=== PATIENT | female | born 1965 | race Caucasian/White ===

== ENCOUNTER → 2024-03-14 14:58 | Observation (INO) ==
[2024-03-10] MEDS: IPRATROPIUM/ALBUTEROL SULFATE 3 ML AMPUL.NEB INH SCH (15:14)
[2024-03-10 15:15] LABS: PCO2 ABG 41 mmHg (35-45); pH ABG 7.44 (7.35-7.45)
[2024-03-10 15:16] LABS: Base Excess ABG 3.3 mmo1/L (-2-2); Oxygen Saturation ABG 84 % (92-100); PO2 ABG 47 mmHg (60-100)
--- NOTE | 2024-03-10 16:10 | History & Physical Report ---
H&P: HPI History of Present Illness Chief complaint: copd exacerbation Narrative: Patient is a 58 year old female who presented to her PCP, ALEX Ayers for complaint of COPD Exacerbation with failed outpatient treatment. Per PCP patient has experienced worsening cough and shortness of breath, coughing up thick sputum, reports fatigue and dyspnea worse with exertion. Patient states last night when she checked her oxygen it was dropping into the 80's, while symptomatic. While in the PCP office, walk test was attempted to be performed and had to terminate due to worsening symptoms; O2 Sats dropping to 82%, HR increased to 120s, cough worsened, and dizziness started. Patient disclosed she originally began the first part of the month and she has failed outpatient treatment with Azithromycin and cough medication, without improvement. Admitted to med/surg for further observation and treatment. Day one of hospital stay, patient was put on 2L O2 via nasal cannula, current O2 Sats at 93%. Blood Gas performed by Respiratory Therapy, ABG HCO3 27.8, ABG 02 Saturation 84, ABG Base Excess 3.3, Respiratory Index 1.1. Patient will continue to be monitored throughout the night. Review of Systems Status of ROS 10 or more systems reviewed and unremark able except as noted in history and below Constitutional Reports: fatigue; Denies: fever, chills or change in weight Eyes Denies: change in vision, blurry vision, blind spots or light sensitivity Ears, nose, mouth, and throat Denies: throat pain, neck pain, throat swelling, difficulty swallowing or hoarseness Cardiovascular Denies: chest pain, palpitations, edema, swelling of feet/ankles or lightheadedness Respiratory Reports: shortness of breath, cough and chest congestion Gastrointestinal Denies: abdominal pain, nausea, vomiting or coffee grounds in vomit Genitourinary Denies: painful urination, urinary frequency, urinary urgency or urinary incontinence Musculoskeletal Denies: back pain, neck pain, extremity pain, extremity swelling or joint pain Integumentary/Breast Denies: rash, itching, redness, skin pain or skin tenderness Neurological Reports: dizziness; Denies: headache, numbness in extremities, weakness in extremities or lack of coordination Psychiatric Denies: anxiety, mood swings, panic attacks, change in sleep pattern or hopelessness Endocrine Reports: fatigue; Denies: excessive urination, excessive thirst, cold intolerance or excessive sweating Hematologic/Lymphatic Denies: easy bruising, easy bleeding or enlarged lymph nodes Allergic/Immunologic Denies: hives, throat swelling, tongue swelling, facial swelling or wheezing [facility] Medical History (Updated 03/11/24 @ 07:44 by Anisha Rudolph DO) COPD exacerbation Social History Problems where you live: no known problems Highest level of school completed/degree received: high school Meds Home Medications and Allergies Allergies Allergy/AdvReac Type Severity Reaction Status Date / Time aspirin Allergy Mild Abdominal Verified 03/10/24 17:00 Pain Exam Exam: Patient placed on 2L O2 via nasal cannula. Constitutional: abnormal general appearance (disheveled), (chronically ill) and (lethargic), distress noted (mild) and (respiratory), abnormal body habitus (obese), no limitations and alert Vital Signs - 24 hr 03/10/24 15:12 03/10/24 15:12 Pulse Oximetry 90 L 93 L Oxygen Delivery Me thod Nasal Cannula Oxygen Flow Rate 2 Fraction of Inspir ed Oxygen 28 HENMT: normocephalic, head/scalp atraumatic, hearing grossly normal bilaterally, external ears normal and external nose normal Eyes: PERRL, EOMs intact bilaterally, conjunctivae normal, no scleral icterus, papilledema noted, alignment normal, periorbital findings normal and visual acuity normal Neck/C-Spine: trachea midline, cervical spine nontender, abnormal cervical ROM noted, supple, no meningeal signs, thyroid normal and no carotid bruits Lymph: no lymphadenopathy noted and no lymphedema noted Chest: inspection of chest normal and palpation of chest normal Respiratory: breath sounds equal bilaterally, abnormal respiratory effort (shallow breathing) and (labored) and auscultation abnormal (diminished breath sound) Cardiovascular: heart rate abnormal (tachycardic), regular rhythm noted, no gallop, no rub, no murmur, no JVD, no clicks and peripheral pulses 2+ throughout Gastrointestinal: abdomen normal to inspection, abdomen soft to palpation, nontender to palpation, nondistended, normoactive bowel sounds, no ascites and no hernia Genitourinary: bladder normal to palpation and external appearance normal Back/Pelvis: no thoracic spine tenderness, no lumbar spine tenderness, thoracic spine ROM normal and lumbar spine ROM normal Extremities: normal to inspection 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: 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, no movement abnormality noted, no focal motor deficit noted, sensory deficit noted, deep tendon reflexes 2+ bilaterally, gait normal, speech normal, coordination normal, no pronator drift noted, no fasciculations noted and GCS normal Psychiatry: Mental Status Exam documented within this Exam's Psych section mental status grossly normal, oriented x3, thought process normal, cooperative, affect normal, psychomotor activity normal and memory normal Skin: skin color normal, no rash, no lesions, no ecchymosis noted, no wounds, no lacerations, skin turgor normal, no jaundice, no petechiae, no mottling and nails abnormality noted Assessment and Plan Assessment and Plan (1) COPD exacerbation: Code(s): J44.1 - Chronic obstructive pulmonary disease with (acute) exacerbation (2) SOB (shortness of breath): Code(s): R06.02 - Shortness of breath (3) Hypoxia: Code(s): R09.02 - Hypoxemia (4) Dyspnea: Qualifiers: Dyspnea type: dyspnea on exertion Qualified Code(s): R06.09 - Other forms of dyspnea Code(s): R06.00 - Dyspnea, unspecified (5) Near syncope: Code(s): R55 - Syncope and collapse Plan Sodium Chloride 1,000 mls @ 125 mls/hr IV CONT Sodium Chloride 1,000 mls Bolus Azithromycin 500 mg in Sodium Chloride 250 mls @ 250 mls/hr IV Q24H Levofloxacin/Dextrose 500 mg in 100 mls @ 50 mls/hr IV Q24H Albuterol Sulfate 3 ml INH RQ4 Budesonide 0.5 mg INH RBID Pantoprazole Sodium 40 mg PO DAILY Enoxaparin Sodium 40 mg SUBQ Q24H Methylprednisolone Sodium Succinate 125 mg IVP Q12H Acetaminophen 1,000 mg PO Q6H PRN Ketorolac Tromethamine 15 mg IVP Q6H PRN Ondansetron Hcl 4 mg INJ Q6H PRN Chlorphenir/Hydrocodone Polistirex 5 ml PO Q12H PRN Benzonatate 200 mg PO Q8H PRN Results ABG ABG results: 03/10/24 14:47 ABG pH 7.44 ABG pCO2 41 ABG pO2 98 ABG HCO3 27.8 H ABG Total CO2 29.1 ABG O2 Saturation 84 L* ABG Base Excess 3.3 H Imaging Imaging ordered: Chest x-ray Radiologist's impression: XR CHEST 2V Date of Service: 03/10/24 HISTORY: COPD suspect bronchpneumoniaCOPD suspect bronchpneumonia; CV COMPARISON: February 12, 2024 FINDINGS: The trachea is midline. The cardiac silhouette is normal in size. Mild emphysema is present. The lungs are clear without focal infiltrate or effusion. The bony thorax is unremarkable. IMPRESSION: No acute cardiopulmonary disease.
[2024-03-10] MEDS: ENOXAPARIN SODIUM 40 MG/0.4 ML SYRINGE SUBQ SCH (16:16)
[2024-03-10] MEDS: AZITHROMYCIN 500 MG 500 MG in 0.9 % SODIUM CHLORIDE 250 ML IV SCH (16:16)
[2024-03-10] MEDS: METHYLPREDNISOLONE SOD SUCC/PF 125 MG/2 ML VIAL IVP SCH (16:16)
[2024-03-10] MEDS: 0.9 % SODIUM CHLORIDE 1000 ML 1,000 ML IV SCH ×2 (16:16→16:17)
[2024-03-10] MEDS: LEVOFLOXACIN/D5W 500 MG/100 ML 500 MG/100 ML PIGGYBACK IV SCH (16:16)
[2024-03-10 16:23] LABS: Basophils #(Absolute) Auto 0.1 (0.0-0.1); Basophils%(Percent) Auto 0.8 (0.1-0.85); Eosinophils#(Absolute)Auto 0.1 (0.0-0.2); Granulocytes % - Auto 70.5 % (47.8-71.3); Granulocytes#(Absolute)- Auto 4.9 (2.3-6.0); Hematocrit 43.2 % (35.9-46.7); Mean Corpuscular Volume 92.4 fl (81.0-93.7); Monocytes #(Absolute)- Auto 0.6 (1.1-3.1); Monocytes %(Percent)- Auto 8.5 % (3.6-9.8); Platelet Count 236 K/uL (152-353)
[2024-03-10 16:47] LABS: Potassium 3.2 mmol/L (3.6-5.2)
[2024-03-10] MEDS: ACETAMINOPHEN 500 MG TABLET PO PRN (17:21)
[2024-03-10] MEDS: BUDESONIDE 0.5 MG/2 ML AMPUL.NEB INH SCH (20:16)
[2024-03-11] MEDS: HYDROCODONE/CHLORPHEN P-STIREX 5 ML SUS.ER.12H PO PRN (00:24)
[2024-03-11 04:51] LABS: Basophils%(Percent) Auto 0.4 (0.1-0.85); Granulocytes % - Auto 76.5 % (47.8-71.3); Granulocytes#(Absolute)- Auto 3.2 (2.3-6.0); Hematocrit 38.8 % (35.9-46.7); Mean Corpuscular Volume 92.7 fl (81.0-93.7); Monocytes #(Absolute)- Auto 0.2 (1.1-3.1); Platelet Count 203 K/uL (152-353); White Blood Count 4.2 K/uL (4.3-9.3)
[2024-03-11 05:11] LABS: Potassium 3.6 mmol/L (3.6-5.2)
[2024-03-11 09:04] LABS: Amphetamine Screen Urine NEG. (NEGATIVE); Cannabinoid Screen Urine NEG. (NEGATIVE); Cocaine Screen Urine NEG. (NEGATIVE); Methadone Screen Urine NEG. (NEGATIVE); Opiate Screen Urine POS. (NEGATIVE)
[2024-03-11 09:12] LABS: Urine Appearance CLEAR (CLEAR); Urine Color YELLOW (STRAW/YELL.)
[2024-03-11 09:13] LABS: Specific Gravity Urine 1.025 (1.001-1.035); Urine Blood NEGATIVE (NEG - TRACE); Urine Urobilinogen Normal (NORMAL)
[2024-03-11] MEDS: PANTOPRAZOLE SODIUM 40 MG TABLET.DR PO SCH (09:17)
[2024-03-11] MEDS: MAGNESIUM OXIDE 400 MG TABLET PO ONE (09:36)
[2024-03-11] MEDS: lisinopriL 5 MG TABLET PO SCH (13:37)
[2024-03-11] MEDS: CITALOPRAM HYDROBROMIDE 20 MG TABLET PO SCH (13:37)
[2024-03-11] MEDS: FLUTICASONE 50 MCG NASAL 1 SPRAY.SUSP NAS SCH (13:37)
[2024-03-11] MEDS: LEVOTHYROXINE SODIUM 100 MCG TABLET PO SCH (16:05)
--- NOTE | 2024-03-11 16:57 | Progress Note ---
Progress Note: Subjective Subjective Interval history: Day two of hospital stay, nurse had to perform an in and out catheter to catch urine, as patient kept removing urine hat in toilet. Patient is on 2L O2 and saturating 96%, without O2 on patient saturation drops to 82%. Walk Test was performed by Respiratory Therapy. Patient has inspiratory and expiratory wheezing. Provider recommends adding humidity to O2, as well as, Flonase to medication, and an Acapella device. Home meds will be restarted. Exam Exam: Patient placed on 2L O2 via nasal cannula. Constitutional: abnormal general appearance (chronically ill), distress noted (mild) and (respiratory), abnormal body habitus (obese), no limitations and alert Vital Signs - 24 hr 03/10/24 20:17 03/10/24 20:17 03/10/24 22:07 Temperature 98.2 F Pulse Rate [Left B rachial] 94 H Respiratory Rate 20 Blood Pressure [Le ft Radial Artery] 139/77 Pulse Oximetry 95 95 94 L Oxygen Delivery Me thod Nasal Cannula Oxygen Flow Rate 2 Fraction of Inspir ed Oxygen 03/10/24 22:08 03/10/24 23:31 03/11/24 00:00 Temperature 98.2 F 97.6 F Pulse Rate [Left B rachial] 94 H 82 Respiratory Rate 20 19 Blood Pressure [Le ft Radial Artery] 139/77 152/59 Pulse Oximetry 94 L 97 97 Oxygen Delivery Me thod Nasal Cannula Oxygen Flow Rate 2 Fraction of Inspir ed Oxygen 03/11/24 00:00 03/11/24 03:35 03/11/24 04:00 Temperature 97.6 F 98.1 F Pulse Rate [Left B rachial] 82 85 Respiratory Rate 19 20 Blood Pressure [Le ft Radial Artery] 152/59 129/92 Pulse Oximetry 97 95 97 Oxygen Delivery Me thod Nasal Cannula Oxygen Flow Rate 2 Fraction of Inspir ed Oxygen 03/11/24 04:00 03/11/24 07:51 03/11/24 08:00 Temperature 98.1 F 97.8 F Pulse Rate [Left B rachial] 85 80 Respiratory Rate 20 19 Blood Pressure [Le ft Radial Artery] 129/92 147/72 Pulse Oximetry 97 96 96 Oxygen Delivery Me thod Nasal Cannula Nasal Cannula Oxygen Flow Rate 2 2 Fraction of Inspir ed Oxygen 03/11/24 10:22 03/11/24 11:20 03/11/24 11:58 Temperature 98 F Pulse Rate [Left B rachial] 97 H Respiratory Rate 19 Blood Pressure [Le ft Radial Artery] 149/73 Pulse Oximetry 93 L 98 98 Oxygen Delivery Me thod Nasal Cannula Nasal Cannula Oxygen Flow Rate 2 2 Fraction of Inspir ed Oxygen 28 03/11/24 15:49 03/11/24 16:00 Temperature 97.7 F Pulse Rate [Left B rachial] 99 H Respiratory Rate 19 Blood Pressure [Le ft Radial Artery] 132/63 Pulse Oximetry 92 L 99 Oxygen Delivery Me thod Nasal Cannula Oxygen Flow Rate 2 Fraction of Inspir ed Oxygen HENMT: normocephalic, head/scalp atraumatic, hearing grossly normal bilaterally, external ears normal and external nose normal Eyes: PERRL, EOMs intact bilaterally, conjunctivae normal, no scleral icterus, papilledema noted, alignment normal, periorbital findings normal and visual acuity normal Neck/C-Spine: trachea midline, cervical spine nontender, abnormal cervical ROM noted, supple, no meningeal signs, thyroid normal and no carotid bruits Lymph: no lymphadenopathy noted and no lymphedema noted Chest: inspection of chest normal and palpation of chest normal Respiratory: breath sounds equal bilaterally, abnormal respiratory effort (shallow breathing) and (labored) and auscultation abnormal (diminished breath sound) Cardiovascular: heart rate abnormal (tachycardic), regular rhythm noted, no gallop, no rub, no murmur, no JVD, no clicks and peripheral pulses 2+ throughout Gastrointestinal: abdomen normal to inspection, abdomen soft to palpation, nontender to palpation, nondistended, normoactive bowel sounds, no ascites and no hernia Genitourinary: bladder normal to palpation and external appearance normal Back/Pelvis: spine normal to inspection, no thoracic spine tenderness, no lumbar spine tenderness, thoracic spine ROM normal and lumbar spine ROM normal Extremities: normal to inspection 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: 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, no movement abnormality noted, no focal motor deficit noted, sensory deficit noted, deep tendon reflexes 2+ bilaterally, gait normal, speech normal, coordination normal, no pronator drift noted, no fasciculations noted and GCS normal Psychiatry: Mental Status Exam documented within this Exam's Psych section mental status grossly normal, oriented x3, thought process normal, cooperative, affect normal, psychomotor activity normal and memory normal Skin: skin color normal, no rash, no lesions, no ecchymosis noted, no wounds, no lacerations, skin turgor normal, no jaundice, no petechiae, no mottling and nails abnormality noted Progress Note: Objective Labs Labs: CBC WBC 4.2 K/uL (4.3-9.3) L 03/11/24 04:38 RBC 4.2 M/uL (4.00-5.50) 03/11/24 04:38 Hgb 13.1 gm/dL (12.5-15.8) 03/11/24 04:38 Hct 38.8 % (35.9-46.7) 03/11/24 04:38 MCV 92.7 fl (81.0-93.7) 03/11/24 04:38 MCH 31.3 pg (27.6-32.2) 03/11/24 04:38 MCHC 33.8 g/dl (33.1-35.3) 03/11/24 04:38 RDW 14.1 % (11.4-14.2) 03/11/24 04:38 Plt Count 203 K/uL (152-353) 03/11/24 04:38 MPV 8.4 fl (6.9-10.8) 03/11/24 04:38 Gran % 76.5 % (47.8-71.3) H 03/11/24 04:38 Lymph % (Auto) 17.1 % (20.0-43.0) L 03/11/24 04:38 [place] % (Auto) 6.0 % (3.6-9.8) 03/11/24 04:38 Eos % (Auto) 0.0 % (0.4-2.8) L 03/11/24 04:38 Baso % (Auto) 0.4 (0.1-0.85) 03/11/24 04:38 Lymph # (Auto) 0.7 (1.1-3.1) L 03/11/24 04:38 [place] # (Auto) 0.2 (1.1-3.1) L 03/11/24 04:38 Eos # (Auto) 0.0 (0.0-0.2) 03/11/24 04:38 Baso # (Auto) 0.0 (0.0-0.1) 03/11/24 04:38 Absolute Gran (auto) 3.2 (2.3-6.0) 03/11/24 04:38 BMP Sodium 138 mmol/L (136-145) 03/11/24 04:38 Potassium 3.6 mmol/L (3.6-5.2) 03/11/24 04:38 Chloride 102.0 mmol/L (98-107) 03/11/24 04:38 Carbon Dioxide 26 mmol/L (21-32) 03/11/24 04:38 Anion Gap 10.0 mEq/L (4-14) 03/11/24 04:38 BUN 17 mg/dL (7-18) 03/11/24 04:38 Creatinine 0.9 mg/dL (0.6-1.3) 03/11/24 04:38 Estimated GFR 73.6 (>59.9) 03/11/24 04:38 Glucose 163 mg/dL (70-110) H 03/11/24 04:38 Calcium 9.1 mg/dL (8.5-10.1) 03/11/24 04:38 Phosphorus 2.5 mg/dL (2.5-4.9) 03/11/24 04:38 Magnesium 1.6 mg/dL (1.8-2.4) L 03/11/24 04:38 Total Bilirubin 0.16 mg/dL (0.0-1.0) 03/11/24 04:38 AST 16 U/L (15-37) 03/11/24 04:38 ALT 20 U/L (30-65) L 03/11/24 04:38 Alkaline Phosphatase 75 U/L (50-136) 03/11/24 04:38 Total Protein 6.6 g/dL (6.4-8.2) 03/11/24 04:38 Albumin 3.0 g/dL (3.4-5.0) L 03/11/24 04:38 Cardiac Enzymes Troponin I High Sens 8.00 ng/L (4.0-60.4) 03/10/24 15:55 Liver Function Total Bilirubin 0.16 mg/dL (0.0-1.0) 03/11/24 04:38 AST 16 U/L (15-37) 03/11/24 04:38 ALT 20 U/L (30-65) L 03/11/24 04:38 Alkaline Phosphatase 75 U/L (50-136) 03/11/24 04:38 Total Protein 6.6 g/dL (6.4-8.2) 03/11/24 04:38 Albumin 3.0 g/dL (3.4-5.0) L 03/11/24 04:38 Urine Urine Color Yellow (STRAW/YELL.) 03/11/24 08:46 Urine Appearance Clear (CLEAR) 03/11/24 08:46 Ur Specific [place] 1.025 (1.001-1.035) 03/11/24 08:46 Urine Protein Trace (NEGATIVE) 03/11/24 08:46 Urine Glucose (UA) Normal (NORMAL) 03/11/24 08:46 Urine Ketones Negative (NEGATIVE) 03/11/24 08:46 Urine Occult Blood Negative (NEG - TRACE) 03/11/24 08:46 Urine Nitrite Negative (NEGATIVE) 03/11/24 08:46 Urine Bilirubin Negative (NEGATIVE) 03/11/24 08:46 Urine Urobilinogen Normal (NORMAL) 03/11/24 08:46 Ur Leukocyte Esterase Negative (NEGATIVE) 03/11/24 08:46 Imaging Chest x-ray: Radiologist's impression: XR CHEST 2V Date of Service: 03/10/24 HISTORY: COPD suspect bronchpneumoniaCOPD suspect bronchpneumonia; CV COMPARISON: February 12, 2024 FINDINGS: The trachea is midline. The cardiac silhouette is normal in size. Mild emphysema is present. The lungs are clear without focal infiltrate or effusion. The bony thorax is unremarkable. IMPRESSION: No acute cardiopulmonary disease. Progress Note: A&P Assessment and Plan (1) COPD exacerbation: (2) SOB (shortness of breath): (3) Hypoxia: (4) Dyspnea: Qualifiers: Dyspnea type: dyspnea on exertion Qualified Code(s): R06.09 - Other forms of dyspnea (5) Near syncope: Plan Sodium Chloride 1,000 mls @ 125 mls/hr IV CONT Azithromycin 500 mg in Sodium Chloride 250 mls @ 250 mls/hr IV Q24H Levofloxacin/Dextrose 500 mg in 100 mls @ 50 mls/hr IV Q24H Albuterol Sulfate 3 ml INH RQ4 Budesonide 0.5 mg INH RBID Pantoprazole Sodium 40 mg PO DAILY Enoxaparin Sodium 40 mg SUBQ Q24H Methylprednisolone Sodium Succinate 125 mg IVP Q12H Fluticasone Propionate 50 mcg nasal spray BID Citalopram Hydrobromide 40 mg PO DAILY Levothyroxine Sodium 100 mcg PO QDAC Lisinopril 5 mg PO DAILY Acetaminophen 1,000 mg PO Q6H PRN Ketorolac Tromethamine 15 mg IVP Q6H PRN Ondansetron Hcl 4 mg INJ Q6H PRN Chlorphenir/Hydrocodone Polistirex 5 ml PO Q12H PRN Benzonatate 200 mg PO Q8H PRN Fall Risk Details Gal[place]os Fall Scale Risk Level: Moderate Fall Risk Current Medications: Current Medications Acetaminophen (Acetaminophen 500 Mg Tablet) 1,000 mg PO Q6H PRN PRN Reason: MILD PAIN SCALE 1-4 Last Admin: 03/11/24 07:45 Dose: 1,000 mg Albuterol Sulfate (Ipratropium/Albuterol Sulfate 3 Ml Ampul.Neb) 3 ml INH RQ4 [facility] Last Admin: 03/11/24 15:48 Dose: 3 ml Benzonatate (Benzonatate 100 Mg Capsule) 200 mg PO Q8H PRN PRN Reason: Cough Budesonide (Budesonide 0.5 Mg/2 Ml Ampul.Neb) 0.5 mg INH RBID [facility] Last Admin: 03/11/24 07:48 Dose: 0.5 mg Chlorphenir/Hydrocodone Polistirex (Hydrocodone/Chlorphen P-Stirex 5 Ml Aga.Er.12h) 5 ml PO Q12H PRN PRN Reason: Cough Last Admin: 03/11/24 12:33 Dose: 5 ml Citalopram Hydrobromide (Citalopram Hydrobromide 20 Mg Tablet) 40 mg PO DAILY [facility] Last Admin: 03/11/24 13:37 Dose: 40 mg Enoxaparin Sodium (Enoxaparin Sodium 40 Mg/0.4 Ml Syringe) 40 mg SUBQ Q24H [facility] Last Admin: 03/11/24 16:05 Dose: 40 mg Fluticasone Propionate (Fluticasone 50 Mcg Nasal 1 Justice.Susp) 0 spray GIAN BID [facility] Last Admin: 03/11/24 13:37 Dose: 11.1 spray Sodium Chloride (Sodium Chloride) 1,000 mls @ 125 mls/hr IV CONT [facility] Last Admin: 03/11/24 12:33 Dose: 125 mls/hr Azithromycin 500 mg/ Sodium (Chloride) 250 mls @ 250 mls/hr IV Q24H [facility] Last Admin: 03/11/24 16:04 Dose: 250 mls/hr Levofloxacin/Dextrose (Levofloxacin/D5w 500 Mg/100 Ml) 500 mg in 100 mls @ 50 mls/hr IV Q24H [facility] Last Admin: 03/11/24 16:04 Dose: 50 mls/hr Ketorolac Tromethamine (Ketorolac 30 Mg/Ml Inj Vial) 15 mg IVP Q6H PRN PRN Reason: MODERATE PAIN 5-7 Stop: 03/15/24 15:59 Levothyroxine Sodium (Levothyroxine Sodium 100 Mcg Tablet) 100 mcg PO QDAC [facility] Last Admin: 03/11/24 16:05 Dose: 100 mcg Lisinopril (Lisinopril 5 Mg Tablet) 5 mg PO DAILY [facility] Last Admin: 03/11/24 13:37 Dose: 5 mg Methylprednisolone Sodium Succinate (Methylprednisolone Sod Succ/Pf 125 Mg/2 Ml Vial) 125 mg IVP Q12H [facility] Last Admin: 03/11/24 16:04 Dose: 125 mg Ondansetron HCl (Ondansetron Hcl/Pf 4 Mg/2 Ml Vial) 4 mg INJ Q6H PRN PRN Reason: Nausea And Vomiting Pantoprazole Sodium (Pantoprazole Sodium 40 Mg Tablet.) 40 mg PO DAILY [facility] Last Admin: 03/11/24 09:17 Dose: 40 mg Time Spent With Patient Time: Total time spent is greater than 50% in coordination of care (as documented) at patient's floor/unit and/or counseling patient:
[2024-03-12 07:02] LABS: Basophils%(Percent) Auto 0.1 (0.1-0.85); Granulocytes % - Auto 86.5 % (47.8-71.3); Granulocytes#(Absolute)- Auto 11.3 (2.3-6.0); Hematocrit 41.3 % (35.9-46.7); Mean Corpuscular Volume 95.8 fl (81.0-93.7); Monocytes #(Absolute)- Auto 0.6 (1.1-3.1); Monocytes %(Percent)- Auto 4.5 % (3.6-9.8); Platelet Count 199 K/uL (152-353); White Blood Count 13.1 K/uL (4.3-9.3)
[2024-03-12 07:16] LABS: Potassium 3.8 mmol/L (3.6-5.2)
[2024-03-12 10:45] LABS: Base Excess ABG -1.5 mmo1/L (-2-2); Oxygen Saturation ABG 94 % (92-100); PCO2 ABG 44 mmHg (35-45); PO2 ABG 75 mmHg (60-100); pH ABG 7.35 (7.35-7.45)
[2024-03-12] MEDS: NICOTINE 21 MG/HR .TD24 TD SCH (11:40)
[2024-03-12] MEDS: MAGNESIUM SULFATE 1 GM/2 ML 2 GM in 0.9 % SODIUM CHLORIDE 100ML 100 ML IV ONE (11:40)
[2024-03-12] MEDS: MAGNESIUM OXIDE 400 MG TABLET PO ONE (14:35)
--- NOTE | 2024-03-12 15:20 | Progress Note ---
Progress Note: Subjective Subjective Interval history: Day three of hospital stay, patients chief complaint today is shortness of breath. Wheezing throughout was observed during exam. Provider educated patient on use of Acapella device, patient demonstrated while doctor was in the room. Repeat of Chest X-Ray was requested for today. patient states she feels so tight and cannot breathe especially with movement even with oxygen on she drops to 87% when gets out of bed for bed side potty. educated for 9 minutes on acapella and correct use as patient not doing correctly when asked to demonstrate it for me. Exam Exam: Patient encouraged to use Acapella device every 30 minutes to an hour. Constitutional: abnormal general appearance (chronically ill), distress noted (mild) and (respiratory), abnormal body habitus (obese), limitations noted (physical limitations) and alert Vital Signs - 24 hr 03/11/24 15:49 03/11/24 16:00 03/11/24 20:21 Temperature 97.7 F Pulse Rate [Left B rachial] 99 H Respiratory Rate 19 Blood Pressure Blood Pressure [Le ft Radial Artery] 132/63 Pulse Oximetry 92 L 99 96 Oxygen Delivery Me thod Nasal Cannula Oxygen Flow Rate 2 Fraction of Inspir ed Oxygen 03/11/24 20:34 03/12/24 00:19 03/12/24 00:20 Temperature 97.9 F 97.8 F 97.8 F Pulse Rate [Left B rachial] 107 H 91 H 91 H Respiratory Rate 21 20 20 Blood Pressure Blood Pressure [Le ft Radial Artery] 99/64 122/55 122/55 Pulse Oximetry 96 99 99 Oxygen Delivery Me thod Nasal Cannula Nasal Cannula Nasal Cannula Oxygen Flow Rate 2 2 2 Fraction of Inspir ed Oxygen 03/12/24 00:40 03/12/24 00:40 03/12/24 04:00 Temperature 97.9 F Pulse Rate [Left B rachial] 83 Respiratory Rate 20 Blood Pressure Blood Pressure [Le ft Radial Artery] 116/78 Pulse Oximetry 93 L 93 L 100 Oxygen Delivery Me thod Nasal Cannula Nasal Cannula Oxygen Flow Rate 2 2 Fraction of Inspir ed Oxygen 28 03/12/24 06:01 03/12/24 07:25 03/12/24 07:25 Temperature Pulse Rate [Left B rachial] Respiratory Rate Blood Pressure Blood Pressure [Le ft Radial Artery] Pulse Oximetry 92 L 99 99 Oxygen Delivery Me thod Nasal Cannula Oxygen Flow Rate 2 Fraction of Inspir ed Oxygen 03/12/24 08:23 03/12/24 10:14 03/12/24 11:14 Temperature 97.9 F Pulse Rate [Left B rachial] 92 H Respiratory Rate 21 Blood Pressure 144/84 Blood Pressure [Le ft Radial Artery] 144/84 Pulse Oximetry 98 96 Oxygen Delivery Me thod Nasal Cannula Oxygen Flow Rate 2 Fraction of Inspir ed Oxygen 03/12/24 12:44 Temperature 98.2 F Pulse Rate [Left B rachial] 100 H Respiratory Rate 22 Blood Pressure Blood Pressure [Le ft Radial Artery] 161/86 Pulse Oximetry 97 Oxygen Delivery Me thod Nasal Cannula Oxygen Flow Rate 2 Fraction of Inspir ed Oxygen HENMT: normocephalic, head/scalp atraumatic, hearing grossly normal bilaterally, external ears normal and external nose normal Eyes: PERRL, EOMs intact bilaterally, conjunctivae normal, no scleral icterus, papilledema noted, alignment normal, periorbital findings normal and visual acuity normal Neck/C-Spine: trachea midline, cervical spine nontender, abnormal cervical ROM noted, supple, no meningeal signs, thyroid normal and no carotid bruits Lymph: no lymphadenopathy noted and no lymphedema noted Chest: inspection of chest normal and palpation of chest normal Respiratory: breath sounds equal bilaterally, abnormal respiratory effort (rapid) (shallow breathing) and (labored), auscultation abnormal (wheezing bilateral with rhonchi increased with cough nonproductive) (diminished breath sound) (bases), wheezing noted (expiratory wheezes), (inspiratory wheezes) and (scattered wheezes), no rales, no retractions and no use of accessory muscles Cardiovascular: heart rate abnormal (tachycardic), regular rhythm noted, no gallop, no rub, no murmur, no JVD, no clicks and peripheral pulses 2+ throughout Gastrointestinal: abdomen normal to inspection, abdomen soft to palpation, nontender to palpation, nondistended, normoactive bowel sounds, no ascites and no hernia Genitourinary: bladder normal to palpation and external appearance normal Back/Pelvis: no thoracic spine tenderness, no lumbar spine tenderness, thoracic spine ROM normal and lumbar spine ROM normal Extremities: normal to inspection 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, no movement abnormality noted, no focal motor deficit noted, sensory deficit noted, deep tendon reflexes 2+ bilaterally, gait normal, speech normal, coordination normal, no pronator drift noted, no fasciculations noted and GCS normal Psychiatry: Mental Status Exam documented within this Exam's Psych section mental status grossly normal, oriented x3, thought process normal, cooperative, affect normal, psychomotor activity normal and memory normal Skin: skin color normal, no rash, no lesions, no ecchymosis noted, no wounds, no lacerations, skin turgor normal, no jaundice, no petechiae, no mottling and nails abnormality noted Progress Note: Objective Labs Labs: CBC WBC 13.1 K/uL (4.3-9.3) H D 03/12/24 06:50 RBC 4.3 M/uL (4.00-5.50) 03/12/24 06:50 Hgb 13.1 gm/dL (12.5-15.8) 03/12/24 06:50 Hct 41.3 % (35.9-46.7) 03/12/24 06:50 MCV 95.8 fl (81.0-93.7) H 03/12/24 06:50 MCH 30.4 pg (27.6-32.2) 03/12/24 06:50 MCHC 31.7 g/dl (33.1-35.3) L 03/12/24 06:50 RDW 15.3 % (11.4-14.2) H 03/12/24 06:50 Plt Count 199 K/uL (152-353) 03/12/24 06:50 MPV 8.8 fl (6.9-10.8) 03/12/24 06:50 Gran % 86.5 % (47.8-71.3) H 03/12/24 06:50 Lymph % (Auto) 8.9 % (20.0-43.0) L 03/12/24 06:50 [place] % (Auto) 4.5 % (3.6-9.8) 03/12/24 06:50 Eos % (Auto) 0.0 % (0.4-2.8) L 03/12/24 06:50 Baso % (Auto) 0.1 (0.1-0.85) 03/12/24 06:50 Lymph # (Auto) 1.2 (1.1-3.1) 03/12/24 06:50 [place] # (Auto) 0.6 (1.1-3.1) L 03/12/24 06:50 Eos # (Auto) 0.0 (0.0-0.2) 03/12/24 06:50 Baso # (Auto) 0.0 (0.0-0.1) 03/12/24 06:50 Absolute Gran (auto) 11.3 (2.3-6.0) H 03/12/24 06:50 BMP Sodium 137 mmol/L (136-145) 03/12/24 06:50 Potassium 3.8 mmol/L (3.6-5.2) 03/12/24 06:50 Chloride 105.0 mmol/L (98-107) 03/12/24 06:50 Carbon Dioxide 26 mmol/L (21-32) 03/12/24 06:50 Anion Gap 6.0 mEq/L (4-14) 03/12/24 06:50 BUN 16 mg/dL (7-18) 03/12/24 06:50 Creatinine 0.9 mg/dL (0.6-1.3) 03/12/24 06:50 Estimated GFR 73.6 (>59.9) 03/12/24 06:50 Glucose 136 mg/dL (70-110) H 03/12/24 06:50 Calcium 8.9 mg/dL (8.5-10.1) 03/12/24 06:50 Phosphorus 3.3 mg/dL (2.5-4.9) 03/12/24 06:50 Magnesium 1.6 mg/dL (1.8-2.4) L 03/12/24 06:50 Total Bilirubin 0.12 mg/dL (0.0-1.0) 03/12/24 06:50 AST 13 U/L (15-37) L 03/12/24 06:50 ALT 18 U/L (30-65) L 03/12/24 06:50 Alkaline Phosphatase 68 U/L (50-136) 03/12/24 06:50 Total Protein 6.3 g/dL (6.4-8.2) L 03/12/24 06:50 Albumin 2.8 g/dL (3.4-5.0) L 03/12/24 06:50 Cardiac Enzymes Troponin I High Sens 8.00 ng/L (4.0-60.4) 03/10/24 15:55 Liver Function Total Bilirubin 0.12 mg/dL (0.0-1.0) 03/12/24 06:50 AST 13 U/L (15-37) L 03/12/24 06:50 ALT 18 U/L (30-65) L 03/12/24 06:50 Alkaline Phosphatase 68 U/L (50-136) 03/12/24 06:50 Total Protein 6.3 g/dL (6.4-8.2) L 03/12/24 06:50 Albumin 2.8 g/dL (3.4-5.0) L 03/12/24 06:50 Urine Urine Color Yellow (STRAW/YELL.) 03/11/24 08:46 Urine Appearance Clear (CLEAR) 03/11/24 08:46 Ur Specific [place] 1.025 (1.001-1.035) 03/11/24 08:46 Urine Protein Trace (NEGATIVE) 03/11/24 08:46 Urine Glucose (UA) Normal (NORMAL) 03/11/24 08:46 Urine Ketones Negative (NEGATIVE) 03/11/24 08:46 Urine Occult Blood Negative (NEG - TRACE) 03/11/24 08:46 Urine Nitrite Negative (NEGATIVE) 03/11/24 08:46 Urine Bilirubin Negative (NEGATIVE) 03/11/24 08:46 Urine Urobilinogen Normal (NORMAL) 03/11/24 08:46 Ur Leukocyte Esterase Negative (NEGATIVE) 03/11/24 08:46 Imaging Chest x-ray: Radiologist's impression: XR CHEST 2V Date of Service: 03/12/24 HISTORY: COPD and hypoxia and coughCOPD and hypoxia and cough; COMPARISON: March 10, 2024 FINDINGS: The trachea is midline. The cardiac silhouette is normal in size. Mild emphysema is present. The lungs are clear without focal infiltrate or effusion. The bony thorax is unremarkable. IMPRESSION: No acute cardiopulmonary disease. Progress Note: A&P Assessment and Plan (1) COPD exacerbation: (2) SOB (shortness of breath): (3) Hypoxia: (4) Dyspnea: Qualifiers: Dyspnea type: dyspnea on exertion Qualified Code(s): R06.09 - Other forms of dyspnea (5) Near syncope: Plan Azithromycin 500 mg in Sodium Chloride 250 mls @ 250 mls/hr IV Q24H Levofloxacin/Dextrose 500 mg in 100 mls @ 50 mls/hr IV Q24H Albuterol Sulfate 3 ml INH RQ4 Budesonide 0.5 mg INH RBID Pantoprazole Sodium 40 mg PO DAILY Enoxaparin Sodium 40 mg SUBQ Q24H Methylprednisolone Sodium Succinate 125 mg IVP Q12H Fluticasone Propionate 50 mcg nasal spray BID Citalopram Hydrobromide 40 mg PO DAILY Levothyroxine Sodium 100 mcg PO QDAC Lisinopril 5 mg PO DAILY Nicotine 21 mg/hr PATCH (1) each TD Q24H Acetaminophen 1,000 mg PO Q6H PRN Ketorolac Tromethamine 15 mg IVP Q6H PRN Ondansetron Hcl 4 mg INJ Q6H PRN Chlorphenir/Hydrocodone Polistirex 5 ml PO Q12H PRN Benzonatate 200 mg PO Q8H PRN Fall Risk Details Gallegos Fall Scale Risk Level: Moderate Fall Risk Current Medications: Current Medications Acetaminophen (Acetaminophen 500 Mg Tablet) 1,000 mg PO Q6H PRN PRN Reason: MILD PAIN SCALE 1-4 Last Admin: 03/11/24 07:45 Dose: 1,000 mg Albuterol Sulfate (Ipratropium/Albuterol Sulfate 3 Ml Ampul.Neb) 3 ml INH RQ4 [facility] Last Admin: 03/12/24 11:14 Dose: 3 ml Benzonatate (Benzonatate 100 Mg Capsule) 200 mg PO Q8H PRN PRN Reason: Cough Budesonide (Budesonide 0.5 Mg/2 Ml Ampul.Neb) 0.5 mg INH RBID [facility] Last Admin: 03/12/24 07:25 Dose: 0.5 mg Chlorphenir/Hydrocodone Polistirex (Hydrocodone/Chlorphen P-Stirex 5 Ml Aga.Er.12h) 5 ml PO Q12H PRN PRN Reason: Cough Last Admin: 03/12/24 12:09 Dose: 5 ml Citalopram Hydrobromide (Citalopram Hydrobromide 20 Mg Tablet) 40 mg PO DAILY [facility] Last Admin: 03/12/24 10:13 Dose: 40 mg Enoxaparin Sodium (Enoxaparin Sodium 40 Mg/0.4 Ml Syringe) 40 mg SUBQ Q24H [facility] Last Admin: 03/11/24 16:05 Dose: 40 mg Fluticasone Propionate (Fluticasone 50 Mcg Nasal 1 [place].Susp) 0 spray GIAN BID [facility] Last Admin: 03/12/24 10:14 Dose: 1 spray Azithromycin 500 mg/ Sodium (Chloride) 250 mls @ 250 mls/hr IV Q24H [facility] Last Infusion: 03/11/24 17:50 Dose: Infused Levofloxacin/Dextrose (Levofloxacin/D5w 500 Mg/100 Ml) 500 mg in 100 mls @ 50 mls/hr IV Q24H [facility] Last Admin: 03/11/24 16:04 Dose: 50 mls/hr Ketorolac Tromethamine (Ketorolac 30 Mg/Ml Inj Vial) 15 mg IVP Q6H PRN PRN Reason: MODERATE PAIN 5-7 Stop: 03/15/24 15:59 Levothyroxine Sodium (Levothyroxine Sodium 100 Mcg Tablet) 100 mcg PO QDAC [facility] Last Admin: 03/12/24 06:45 Dose: 100 mcg Lisinopril (Lisinopril 5 Mg Tablet) 5 mg PO DAILY [facility] Last Admin: 03/12/24 10:14 Dose: 5 mg Methylprednisolone Sodium Succinate (Methylprednisolone Sod Succ/Pf 125 Mg/2 Ml Vial) 125 mg IVP Q12H [facility] Last Admin: 03/12/24 04:55 Dose: 125 mg Nicotine (Nicotine 21 Mg/Hr .Td24) 1 each TD Q24H [facility] Last Admin: 03/12/24 11:40 Dose: 1 each Ondansetron HCl (Ondansetron Hcl/Pf 4 Mg/2 Ml Vial) 4 mg INJ Q6H PRN PRN Reason: Nausea And Vomiting Pantoprazole Sodium (Pantoprazole Sodium 40 Mg Tablet.Dr) 40 mg PO DAILY [facility] Last Admin: 03/12/24 10:14 Dose: 40 mg Time Spent With Patient Time: Total time spent is greater than 50% in coordination of care (as documented) at patient's floor/unit and/or counseling patient:
[2024-03-13 07:27] LABS: Basophils%(Percent) Auto 0.4 (0.1-0.85); Granulocytes % - Auto 88.5 % (47.8-71.3); Granulocytes#(Absolute)- Auto 11.8 (2.3-6.0); Hematocrit 38.7 % (35.9-46.7); Mean Corpuscular Volume 92.2 fl (81.0-93.7); Monocytes #(Absolute)- Auto 0.5 (1.1-3.1); Monocytes %(Percent)- Auto 3.7 % (3.6-9.8); Platelet Count 215 K/uL (152-353); White Blood Count 13.3 K/uL (4.3-9.3)
[2024-03-13 07:40] LABS: Potassium 4.2 mmol/L (3.6-5.2)
--- NOTE | 2024-03-13 10:27 | Internal Medicine Prog Note ---
Progress Note: A&P Assessment and Plan (1) COPD exacerbation: Assessment and Plan: Stop Zithromax. Continue steroids. Switch to Symbicort from Pulmicort. Can start home Breztri if it's brought. (2) Hypoxia: Assessment and Plan: see above. will need home O2 at discharge (3) Essential (primary) hypertension: Assessment and Plan: at goals, no changes (4) Acquired hypothyroidism: Assessment and Plan: continue home meds (5) Anxiety associated with depression: Assessment and Plan: home meds Plan Azithromycin 500 mg in Sodium Chloride 250 mls @ 250 mls/hr IV Q24H Levofloxacin/Dextrose 500 mg in 100 mls @ 50 mls/hr IV Q24H Albuterol Sulfate 3 ml INH RQ4 Budesonide 0.5 mg INH RBID Pantoprazole Sodium 40 mg PO DAILY Enoxaparin Sodium 40 mg SUBQ Q24H Methylprednisolone Sodium Succinate 125 mg IVP Q12H Fluticasone Propionate 50 mcg nasal spray BID Citalopram Hydrobromide 40 mg PO DAILY Levothyroxine Sodium 100 mcg PO QDAC Lisinopril 5 mg PO DAILY Nicotine 21 mg/hr PATCH (1) each TD Q24H Acetaminophen 1,000 mg PO Q6H PRN Ketorolac Tromethamine 15 mg IVP Q6H PRN Ondansetron Hcl 4 mg INJ Q6H PRN Chlorphenir/Hydrocodone Polistirex 5 ml PO Q12H PRN Benzonatate 200 mg PO Q8H PRN Fall Risk Details Gallegos Fall Scale Risk Level: Low Fall Risk Current Medications: Current Medications Acetaminophen (Acetaminophen 500 Mg Tablet) 1,000 mg PO Q6H PRN PRN Reason: MILD PAIN SCALE 1-4 Last Admin: 03/11/24 07:45 Dose: 1,000 mg Albuterol Sulfate (Ipratropium/Albuterol Sulfate 3 Ml Ampul.Neb) 3 ml INH RQ4 [facility] Last Admin: 03/13/24 07:08 Dose: 3 ml Benzonatate (Benzonatate 100 Mg Capsule) 200 mg PO Q8H PRN PRN Reason: Cough Budesonide (Budesonide 0.5 Mg/2 Ml Ampul.Neb) 0.5 mg INH RBID [facility] Last Admin: 03/13/24 07:08 Dose: 0.5 mg Chlorphenir/Hydrocodone Polistirex (Hydrocodone/Chlorphen P-Stirex 5 Ml Aga.Er.12h) 5 ml PO Q12H PRN PRN Reason: Cough Last Admin: 03/13/24 08:28 Dose: 5 ml Citalopram Hydrobromide (Citalopram Hydrobromide 20 Mg Tablet) 40 mg PO DAILY [facility] Last Admin: 03/13/24 08:23 Dose: 40 mg Enoxaparin Sodium (Enoxaparin Sodium 40 Mg/0.4 Ml Syringe) 40 mg SUBQ Q24H [facility] Last Admin: 03/12/24 15:52 Dose: 40 mg Fluticasone Propionate (Fluticasone 50 Mcg Nasal 1 [place].Susp) 0 spray GIAN BID [facility] Last Admin: 03/13/24 08:23 Dose: 1 spray Azithromycin 500 mg/ Sodium (Chloride) 250 mls @ 250 mls/hr IV Q24H [facility] Last Infusion: 03/12/24 17:21 Dose: Infused Levofloxacin/Dextrose (Levofloxacin/D5w 500 Mg/100 Ml) 500 mg in 100 mls @ 50 mls/hr IV Q24H [facility] Last Admin: 03/12/24 17:34 Dose: 50 mls/hr Ketorolac Tromethamine (Ketorolac 30 Mg/Ml Inj Vial) 15 mg IVP Q6H PRN PRN Reason: MODERATE PAIN 5-7 Stop: 03/15/24 15:59 Levothyroxine Sodium (Levothyroxine Sodium 100 Mcg Tablet) 100 mcg PO QDAC [facility] Last Admin: 03/13/24 06:54 Dose: 100 mcg Lisinopril (Lisinopril 5 Mg Tablet) 5 mg PO DAILY [facility] Last Admin: 03/13/24 08:23 Dose: 5 mg Methylprednisolone Sodium Succinate (Methylprednisolone Sod Succ/Pf 125 Mg/2 Ml Vial) 125 mg IVP Q12H [facility] Last Admin: 03/13/24 03:31 Dose: 125 mg Nicotine (Nicotine 21 Mg/Hr .Td24) 1 each TD Q24H [facility] Last Admin: 03/12/24 11:40 Dose: 1 each Ondansetron HCl (Ondansetron Hcl/Pf 4 Mg/2 Ml Vial) 4 mg INJ Q6H PRN PRN Reason: Nausea And Vomiting Pantoprazole Sodium (Pantoprazole Sodium 40 Mg Tablet.Dr) 40 mg PO DAILY [facility] Last Admin: 03/13/24 08:23 Dose: 40 mg Time Spent With Patient Time: Total time spent is greater than 50% in coordination of care (as documented) at patient's floor/unit and/or counseling patient: Internal Medicine - PN: Subj Subjective Interval history: Day 4 of hospital stay. Still easily winded with any activity. Still with deep, productive, painful cough. Vitals and labs overall stable. AFIA overnight. Exam Constitutional: normal general appearance, no apparent distress, average body habitus, no limitations and alert Vital Signs - 24 hr 03/12/24 11:14 03/12/24 12:44 03/12/24 15:18 Temperature 98.2 F Pulse Rate [Left B rachial] 100 H Respiratory Rate 22 Blood Pressure Blood Pressure [Le ft Radial Artery] 161/86 Pulse Oximetry 96 97 99 Oxygen Delivery Me thod Nasal Cannula Oxygen Flow Rate 2 Fraction of Inspir ed Oxygen 03/12/24 16:11 03/12/24 20:00 03/12/24 20:17 Temperature 98.1 F 98.2 F Pulse Rate [Left B rachial] 67 118 H Respiratory Rate 19 23 Blood Pressure Blood Pressure [Le ft Radial Artery] 112/53 171/99 Pulse Oximetry 98 94 L 98 Oxygen Delivery Me thod Room Air Nasal Cannula Oxygen Flow Rate Fraction of Inspir ed Oxygen 03/12/24 20:17 03/12/24 23:51 03/13/24 03:59 Temperature 98.1 F 97.9 F Pulse Rate [Left B rachial] 89 84 Respiratory Rate 20 19 Blood Pressure Blood Pressure [Le ft Radial Artery] 106/64 139/87 Pulse Oximetry 98 98 99 Oxygen Delivery Me thod Nasal Cannula Nasal Cannula Nasal Cannula Oxygen Flow Rate 2 Fraction of Inspir ed Oxygen 28 03/13/24 07:08 03/13/24 07:08 03/13/24 08:00 Temperature 98.7 F Pulse Rate [Left B rachial] 88 Respiratory Rate 22 Blood Pressure Blood Pressure [Le ft Radial Artery] 131/58 Pulse Oximetry 99 99 98 Oxygen Delivery Me thod Nasal Cannula Room Air Oxygen Flow Rate 2 Fraction of Inspir ed Oxygen 03/13/24 08:23 Temperature Pulse Rate [Left B rachial] Respiratory Rate Blood Pressure 131/58 Blood Pressure [Le ft Radial Artery] Pulse Oximetry Oxygen Delivery Me thod Oxygen Flow Rate Fraction of Inspir ed Oxygen HENMT: normocephalic, head/scalp atraumatic, hearing grossly normal bilaterally and external ears normal Eyes: PERRL and EOMs intact bilaterally Neck/C-Spine: visual inspection normal, trachea midline and cervical full ROM noted Respiratory: breath sounds equal bilaterally, normal respiratory effort, wheezing noted (throughout) (expiratory wheezes) and (inspiratory wheezes), no retractions and no use of accessory muscles Cardiovascular: normal heart rate noted, regular rhythm noted and no murmur Gastrointestinal: abdomen soft to palpation, nontender to palpation, nondistended and normoactive bowel sounds Back/Pelvis: thoracic spine ROM normal and lumbar spine ROM normal Extremities: normal to inspection, normal to palpation and full ROM Neurology: no focal motor deficit noted, speech normal, coordination normal, no fasciculations noted and GCS normal Psychiatry: mental status grossly normal, oriented x3, thought process normal, cooperative, affect normal, psychomotor activity normal and memory normal Internal Medicine - PN: Obj Da Labs Labs: Laboratory Results - last 24 hr 03/12/24 03/12/24 03/13/24 10:37 10:37 07:00 WBC 13.3 H RBC 4.2 Hgb 12.8 Hct 38.7 MCV 92.2 MCH 30.6 MCHC 33.2 RDW 14.3 H Plt Count 215 MPV 9.1 Gran % 88.5 H Lymph % (Auto) 7.4 L [place] % (Auto) 3.7 Eos % (Auto) 0.0 L Baso % (Auto) 0.4 Lymph # (Auto) 1.0 L [place] # (Auto) 0.5 L Eos # (Auto) 0.0 Baso # (Auto) 0.0 Absolute Gran (auto) 11.8 H ABG pH 7.35 ABG pCO2 44 ABG pO2 75 145 ABG PO2/FiO2 Ratio 0.52 ABG HCO3 24.3 ABG Total CO2 25.7 ABG O2 Saturation 94 ABG Base Excess -1.5 A-a O2 Gradient 70 Respiratory Index 0.9 FiO2 21 Sodium 126 L Potassium 4.2 Chloride 102.0 Carbon Dioxide 31 Anion Gap -7.0 L BUN 17 Creatinine 0.9 Estimated GFR 73.6 Glucose 154 H Calcium 8.9 Phosphorus 3.1 Magnesium 2.1 Total Bilirubin 0.18 AST 17 ALT 34 Alkaline Phosphatase 66 B-Natriuretic Peptide 270.0 H Total Protein 6.3 L Albumin 2.9 L Review of Systems Status of ROS: 10 or more systems reviewed and unremarkable except as noted in history and below Constitutional: Reports: fatigue; Denies: fever, chills or change in weight Eyes: Denies: change in vision, blurry vision, blind spots or light sensitivity Ears, nose, mouth, and throat: Denies: throat pain, neck pain, throat swelling, difficulty swallowing or hoarseness Cardiovascular: Reports: shortness of breath with exertion; Denies: chest pain, palpitations, edema, swelling of feet/ankles or lightheadedness Respiratory: Reports: shortness of breath, cough and chest congestion; Denies: wheezing Gastrointestinal: Denies: abdominal pain, nausea, vomiting, coffee grounds in vomit or difficulty swallowing Genitourinary: Denies: painful urination, urinary frequency, urinary urgency or urinary incontinence Musculoskeletal: Denies: back pain, neck pain, extremity pain, extremity swelling or joint pain Integumentary/Breast: Denies: rash, itching, redness, skin pain or skin tenderness Neurological: Reports: dizziness; Denies: headache, numbness in extremities, weakness in extremities or lack of coordination Psychiatric: Denies: anxiety, mood swings, panic attacks, change in sleep johnathon sudarshan or hopelessness Endocrine: Reports: fatigue; Denies: excessive urination, excessive thirst, cold intolerance or excessive sweating Hematologic/Lymphatic: Denies: easy bruising, easy bleeding or enlarged lymph nodes Allergic/Immunologic: Denies: hives, throat swelling, tongue swelling, facial swelling or wheezing
[2024-03-13] MEDS: BUDESONIDE/FORMOTEROL FUMARATE 160/4.5 MCG INH SCH (21:00)
--- NOTE | 2024-03-14 07:44 | Internal Medicine Prog Note ---
Progress Note: A&P Assessment and Plan (1) COPD exacerbation: Assessment and Plan: Stop Zithromax. Continue steroids. Switch to Symbicort from Pulmicort. Can start home Breztri if it's brought. (2) Hypoxia: Assessment and Plan: see above. will need home O2 at discharge (3) Essential (primary) hypertension: Assessment and Plan: at goals, no changes (4) Acquired hypothyroidism: Assessment and Plan: continue home meds (5) Anxiety associated with depression: Assessment and Plan: home meds Plan Azithromycin 500 mg in Sodium Chloride 250 mls @ 250 mls/hr IV Q24H Levofloxacin/Dextrose 500 mg in 100 mls @ 50 mls/hr IV Q24H Albuterol Sulfate 3 ml INH RQ4 Budesonide 0.5 mg INH RBID Pantoprazole Sodium 40 mg PO DAILY Enoxaparin Sodium 40 mg SUBQ Q24H Methylprednisolone Sodium Succinate 125 mg IVP Q12H Fluticasone Propionate 50 mcg nasal spray BID Citalopram Hydrobromide 40 mg PO DAILY Levothyroxine Sodium 100 mcg PO QDAC Lisinopril 5 mg PO DAILY Nicotine 21 mg/hr PATCH (1) each TD Q24H Acetaminophen 1,000 mg PO Q6H PRN Ketorolac Tromethamine 15 mg IVP Q6H PRN Ondansetron Hcl 4 mg INJ Q6H PRN Chlorphenir/Hydrocodone Polistirex 5 ml PO Q12H PRN Benzonatate 200 mg PO Q8H PRN Fall Risk Details [place]os Fall Scale Risk Level: Moderate Fall Risk Current Medications: Current Medications Acetaminophen (Acetaminophen 500 Mg Tablet) 1,000 mg PO Q6H PRN PRN Reason: MILD PAIN SCALE 1-4 Last Admin: 03/13/24 23:35 Dose: 1,000 mg Albuterol Sulfate (Ipratropium/Albuterol Sulfate 3 Ml Ampul.Neb) 3 ml INH RQ4 KIRK Last Admin: 03/14/24 07:32 Dose: 3 ml Benzonatate (Benzonatate 100 Mg Capsule) 200 mg PO Q8H PRN PRN Reason: Cough Budesonide/Formoterol Fumarate (Budesonide/Formoterol Fumarate 160/4.5 Mcg) 2 puff INH BID KIRK Last Admin: 03/13/24 21:00 Dose: 2 puff Chlorphenir/Hydrocodone Polistirex (Hydrocodone/Chlorphen P-Stirex 5 Ml Aga.Er.12h) 5 ml PO Q12H PRN PRN Reason: Cough Last Admin: 03/13/24 20:27 Dose: 5 ml Citalopram Hydrobromide (Citalopram Hydrobromide 20 Mg Tablet) 40 mg PO DAILY [facility] [place] Last Admin: 03/13/24 08:23 Dose: 40 mg Enoxaparin Sodium (Enoxaparin Sodium 40 Mg/0.4 Ml Syringe) 40 mg SUBQ Q24H [facility] [place] Last Admin: 03/13/24 17:22 Dose: 40 mg Fluticasone Propionate (Fluticasone 50 Mcg Nasal 1 Inman.Susp) 0 spray GIAN BID [facility] [place] Last Admin: 03/13/24 20:28 Dose: 1 spray Levofloxacin/Dextrose (Levofloxacin/D5w 500 Mg/100 Ml) 500 mg in 100 mls @ 50 mls/hr IV Q24H [facility] [place] Last Admin: 03/13/24 17:23 Dose: 50 mls/hr Ketorolac Tromethamine (Ketorolac 30 Mg/Ml Inj Vial) 15 mg IVP Q6H PRN PRN Reason: MODERATE PAIN 5-7 Stop: 03/15/24 15:59 Levothyroxine Sodium (Levothyroxine Sodium 100 Mcg Tablet) 100 mcg PO QDAC [facility] [place] Last Admin: 03/13/24 06:54 Dose: 100 mcg Lisinopril (Lisinopril 5 Mg Tablet) 5 mg PO DAILY [facility] [place] Last Admin: 03/13/24 08:23 Dose: 5 mg Methylprednisolone Sodium Succinate (Methylprednisolone Sod Succ/Pf 125 Mg/2 Ml Vial) 125 mg IVP Q12H [facility] [place] Last Admin: 03/14/24 03:33 Dose: 125 mg Nicotine (Nicotine 21 Mg/Hr .Td24) 1 each TD Q24H [facility] [place] Last Admin: 03/13/24 11:19 Dose: 1 each Ondansetron HCl (Ondansetron Hcl/Pf 4 Mg/2 Ml Vial) 4 mg INJ Q6H PRN PRN Reason: Nausea And Vomiting Pantoprazole Sodium (Pantoprazole Sodium 40 Mg Tablet.Dr) 40 mg PO DAILY [facility] [place] Last Admin: 03/13/24 08:23 Dose: 40 mg Time Spent With Patient Time: Total time spent is greater than 50% in coordination of care (as documented) at patient's floor/unit and/or counseling patient: Internal Medicine - PN: Subj Subjective Interval history: Day 4 of hospital stay. Still easily winded with any activity. Still with deep, productive, painful cough. Vitals and labs overall stable. AFIA overnight. Exam Constitutional: Vital Signs - 24 hr 03/13/24 08:00 03/13/24 08:23 03/13/24 11:14 Temperature 98.7 F Pulse Rate [Left B rachial] 88 Respiratory Rate 22 Blood Pressure 131/58 Blood Pressure [Le ft Radial Artery] 131/58 Pulse Oximetry 98 99 Oxygen Delivery Me thod Room Air Oxygen Flow Rate 03/13/24 12:00 03/13/24 15:21 03/13/24 16:00 Temperature 98.2 F 98.4 F Pulse Rate [Left B rachial] 73 92 H Respiratory Rate 23 22 Blood Pressure Blood Pressure [Le ft Radial Artery] 121/71 138/72 Pulse Oximetry 97 98 97 Oxygen Delivery Me thod Nasal Cannula Nasal Cannula Oxygen Flow Rate 2 2 03/13/24 20:00 03/13/24 23:48 03/13/24 23:55 Temperature 97.9 F 97.9 F Pulse Rate [Left B rachial] 90 92 H Respiratory Rate 19 21 Blood Pressure Blood Pressure [Le ft Radial Artery] 164/93 138/83 Pulse Oximetry 99 96 99 Oxygen Delivery Me thod Nasal Cannula Nasal Cannula Oxygen Flow Rate 03/14/24 04:00 03/14/24 04:17 03/14/24 07:32 Temperature 97.6 F Pulse Rate [Left B rachial] 89 Respiratory Rate 20 Blood Pressure Blood Pressure [Le ft Radial Artery] 154/88 Pulse Oximetry 95 98 97 Oxygen Delivery Me thod Nasal Cannula Oxygen Flow Rate 03/14/24 07:32 Temperature Pulse Rate [Left B rachial] Respiratory Rate Blood Pressure Blood Pressure [Le ft Radial Artery] Pulse Oximetry 97 Oxygen Delivery Me thod Nasal Cannula Oxygen Flow Rate 2 Review of Systems Status of ROS: 10 or more systems reviewed and unremarkable except as noted in history and below Constitutional: Reports: fatigue; Denies: fever, chills or change in weight Eyes: Denies: change in vision, blurry vision, blind spots or light sensitivity Ears, nose, mouth, and throat: Denies: throat pain, neck pain, throat swelling, difficulty swallowing or hoarseness Cardiovascular: Reports: shortness of breath with exertion; Denies: chest pain, palpitations, edema, swelling of feet/ankles or lightheadedness Respiratory: Reports: shortness of breath, cough and chest congestion; Denies: wheezing Gastrointestinal: Denies: abdominal pain, nausea, vomiting, coffee grounds in vomit or difficulty swallowing Genitourinary: Denies: painful urination, urinary frequency, urinary urgency or urinary incontinence Musculoskeletal: Denies: back pain, neck pain, extremity pain, extremity swelling or joint pain Integumentary/Breast: Denies: rash, itching, redness, skin pain or skin tenderness Neurological: Reports: dizziness; Denies: headache, numbness in extremities, weakness in extremities or lack of coordination Psychiatric: Denies: anxiety, mood swings, panic attacks, change in sleep patter n or hopelessness Endocrine: Reports: fatigue; Denies: excessive urination, excessive thirst, cold intolerance or excessive sweating Hematologic/Lymphatic: Denies: easy bruising, easy bleeding or enlarged lymph nodes Allergic/Immunologic: Denies: hives, throat swelling, tongue swelling, facial swelling or wheezing
[2024-03-14 08:53] LABS: Basophils%(Percent) Auto 0.3 (0.1-0.85); Granulocytes % - Auto 88.2 % (47.8-71.3); Granulocytes#(Absolute)- Auto 9.2 (2.3-6.0); Hematocrit 40.9 % (35.9-46.7); Mean Corpuscular Volume 91.9 fl (81.0-93.7); Monocytes #(Absolute)- Auto 0.3 (1.1-3.1); Platelet Count 223 K/uL (152-353); White Blood Count 10.5 K/uL (4.3-9.3)
--- NOTE | 2024-03-14 08:55 | Discharge Summary ---
DS: Providers Provider Date of admission: 03/10/24 14:36 Primary care physician: Maribeth Jordan NP Admitting clinician: Anisha Rudolph Attending physician on admission: Anisha Rudolph Attending physician on discharge: Timmy Hinojosa Discharging clinician: Timmy Hinojosa Anticipated date of discharge: 03/14/24 DS: Diagnosis Discharge Diagnosis (1) COPD exacerbation: Assessment and plan: improving (2) Hypoxia: Assessment and plan: needs home O2 (3) Essential (primary) hypertension: Assessment and plan: continue home meds (4) Acquired hypothyroidism: Assessment and plan: no changes (5) Anxiety associated with depression: Assessment and plan: no changes Plan Discharge home on doxycycline, high-dose prednisone, and Tussionenx. Continue nebs, Breztri, and mucinex-DM. DS: Summary Hospital Course Hospital Course: Direct admit from PCP's office due to COPD exacerbation with acute respiratory failure with hypoxia. Slow improvement on high-dose steroids, inhalers, nebs, and abx. Has home O2 with portable tank and concentrator set-up now. Feels better, but still not at baseline. Cough no longer productive and less painful. Has Breztri at home, but needs albuterol nebs refilled. Discharging home with family support, O2 supplementation, steroids, abx, and cough syrup. Status at Discharge Functional status at discharge: independent ambulation Overall status at discharge: patient is progressing back to baseline Time Spent with Patient Time attestation: Total time spent providing and/or coordinating discharge services: Time spent: greater than 30 minutes Exam Constitutional: normal general appearance, no apparent distress, average body habitus, no limitations and alert Vital Signs - 24 hr 03/13/24 11:14 03/13/24 12:00 03/13/24 15:21 Temperature 98.2 F Pulse Rate [Left B rachial] 73 Respiratory Rate 23 Blood Pressure [Le ft Radial Artery] 121/71 Pulse Oximetry 99 97 98 Oxygen Delivery Me thod Nasal Cannula Oxygen Flow Rate 2 03/13/24 16:00 03/13/24 20:00 03/13/24 23:48 Temperature 98.4 F 97.9 F Pulse Rate [Left B rachial] 92 H 90 Respiratory Rate 22 19 Blood Pressure [Le ft Radial Artery] 138/72 164/93 Pulse Oximetry 97 99 96 Oxygen Delivery Me thod Nasal Cannula Nasal Cannula Oxygen Flow Rate 2 03/13/24 23:55 03/14/24 04:00 03/14/24 04:17 Temperature 97.9 F 97.6 F Pulse Rate [Left B rachial] 92 H 89 Respiratory Rate 21 20 Blood Pressure [Le ft Radial Artery] 138/83 154/88 Pulse Oximetry 99 95 98 Oxygen Delivery Me thod Nasal Cannula Nasal Cannula Oxygen Flow Rate 03/14/24 07:32 03/14/24 07:32 03/14/24 08:00 Temperature 97.7 F Pulse Rate [Left B rachial] 92 H Respiratory Rate 20 Blood Pressure [Le ft Radial Artery] 152/69 Pulse Oximetry 97 97 98 Oxygen Delivery Me thod Nasal Cannula Oxygen Flow Rate 2 2 HENMT: normocephalic, head/scalp atraumatic, hearing grossly normal bilaterally and external ears normal Eyes: PERRL, EOMs intact bilaterally and conjunctivae normal Neck/C-Spine: visual inspection normal and trachea midline Respiratory: breath sounds equal bilaterally, normal respiratory effort, wheezing noted (expiratory wheezes) and (inspiratory wheezes), no retractions and no use of accessory muscles Cardiovascular: normal heart rate noted, regular rhythm noted and no murmur Gastrointestinal: abdomen soft to palpation, nontender to palpation, nondistended and normoactive bowel sounds Back/Pelvis: thoracic spine ROM normal and lumbar spine ROM normal Extremities: normal to inspection and full ROM Neurology: bobbin doffer II-XII intact, gait normal, speech normal and GCS normal Psychiatry: mental status grossly normal, oriented x3, thought process normal, cooperative, affect normal, psychomotor activity normal and memory normal DS: Data Data Completed and Pending Labs on day of discharge: Preliminary micro results at discharge 03/10/24 16:10 Blood Culture - Preliminary Blood - Venous Draw (Peripheral) 03/10/24 15:55 Blood Culture - Preliminary Blood - Venous Draw (Peripheral) Discharge Plan Discharge Disposition: Home, Self-Care Condition: Improved Discharge Medications: New prednisone 50 mg tablet 50 mg PO DAILY Qty: 7 0RF doxycycline hyclate 100 mg capsule 100 mg PO BID Qty: 14 0RF ipratropium-albuterol 0.5 mg-3 mg(2.5 mg base)/3 mL solution for nebulization 3 ml inhalation QID 30 Days Qty: 360 0RF hydrocodone-chlorpheniramine 10-8 mg/5 mL suspension,extended rel 12 hr 5 ml PO Q12H PRN (Reason: cough) 10 Days Qty: 100 0RF Continued cholecalciferol (vitamin D3) 1,250 mcg (50,000 unit) capsule 1,250 mcg PO Q7D Patient Comments: TAKE 1 CAPSULE BY MOUTH ONCE A WEEK FOR VITAMIN D DEFICIENCY Mounjaro 5 mg/0.5 mL pen injector 5 mg SUBCUT Q7D Patient Comments: INJECT 5 MG SUBCUTANEOUSLY ONCE A WEEK FOR 90 DAYS pantoprazole 40 mg tablet,delayed release (DR/EC) 40 mg PO DAILY Patient Comments: TAKE 1 TABLET BY MOUTH ONCE DAILY levothyroxine 100 mcg tablet 100 mcg PO QDAC Patient Comments: TAKE 1 TABLET BY MOUTH ONCE DAILY [id number] 2-30-10 mg/5 mL syrup 5 ml PO .Q4-6H PRN (Reason: cold symptoms) Patient Comments: TAKE 5 ML BY MOUTH EVERY 4 TO 6 HOURS NEEDED FOR COUGH FOR 7 DAYS alprazolam 0.5 mg tablet 0.5 mg PO TID PRN (Reason: anxiety) meloxicam 15 mg tablet 15 mg PO DAILY citalopram 40 mg tablet 40 mg PO DAILY lisinopril 5 mg tablet 5 mg PO DAILY Patient Comments: TAKE 1 TABLET BY MOUTH ONCE DAILY Discharge Orders: Discharge Order (Routine); Ordered 03/14/24 Ordered By: Timmy Hinojosa Activity: increase activity as tolerated Diet: advance to your usual diet Interventions: Discharge Assessment Last Done: 03/14/24 11:54 MED/SURG & ICU Observation Charge Sheet Last Done: 03/14/24 11:56 Patient Instructions: Using Oxygen at Home (DC), COPD (Chronic Obstructive Pulmonary Disease) (DC) Activity Restrictions/Additional Instructions: START NEW MEDICATIONS DIRECTED UNTIL COMPLETE. FOLLOW-UP WITH PRIMARY CARE DOCTOR WEAR OXYGEN AT ALL TIMES Forms: Portal/Health Info Access Inst Follow-Ups: Maribeth Jordan NP [Primary Care Provider] - 03/15/24 11:30 am
[2024-03-14 09:01] LABS: Potassium 3.7 mmol/L (3.6-5.2)
[2024-03-14 12:16] VITALS: BP 146/82; PULSE 91; RESP 21; TEMP 98.7
[~2024-03-14 14:58] MED LIST: BENZONATATE 100 MG CAPSULE PO PRN; KETOROLAC 30 MG/ML INJ VIAL IVP PRN; ONDANSETRON HCL/PF 4 MG/2 ML VIAL INJ PRN
== END | disposition home or self-care (01) ==
LOC: MS
PROVIDERS: ADMIT Family Medicine; ATTEND Family Medicine